=== PATIENT | female | born 1960 | race Caucasian/White ===

== ENCOUNTER 2017-08-01 14:11 | Outpatient (CLI) | payer OTHER ==
--- NOTE | 2017-08-01 15:44 | RAD ---
TWO VIEWS OF THE CHEST: 08/01/17 COMPARISON: None. HISTORY: Breast mass. FINDINGS: Two views of the chest show normal sized cardiomediastinal silhouette. There is no evidence of consol idation, mass, or pleural effusion. The bones are unremarkable. IMPRESSION: No evidence of acute cardiopulmonary disease. POS: [facility]
== END 2017-08-01 14:12 | disposition home or self-care (01) ==
LOC: RAD-FRANK 14:11
PROVIDERS: ATTEND Nurse Practitioner Family
DX: N63.0 Unspecified lump in unspecified breast (principal)
CPT/HCPCS: 71046